=== PATIENT | female | born 1955 | race Two or more races ===

== ENCOUNTER 2019-06-21 00:55 | Emergency (ER) | payer OTHER, MEDICARE ==
[2019-06-21 01:15] VITALS: TEMP 97.9; BMI 28.9
[2019-06-21 02:14] LABS: BASO % 0.4 % (0-2.0); EOS % 0.3 % (0-4.5); HEMATOCRIT 39.5 % (32.4-45.2); HEMOGLOBIN 13.4 GM/dL (10.7-15.3); LYMPH % 15.2 % (8-40); MCH 28.7 pg (25.7-33.7); MCHC 33.9 g/dl (32.0-36.0); MEAN CELL VOLUME 84.7 fl (80-96); MEAN PLT VOLUME 6.7 fl (7.5-11.1); MONO % 4.2 % (3.8-10.2); NEUT % 79.9 % (42.8-82.8); PLATELET COUNT 324 K/MM3 (134-434); RBC 4.66 M/mm3 (3.60-5.2); RDW 12.5 % (11.6-15.6); WHITE BLOOD COUNT 9.7 K/mm3 (4.0-10.0)
[2019-06-21] MEDS ORDERED: SODIUM CHLORIDE 1,000 ML IV STA (02:17)
--- NOTE | 2019-06-21 02:17 | PDOC ---
History of Present Illness - General Chief Complaint: Allergic Reaction Stated Complaint: FAINTED Time Seen by Provider: 06/21/19 01:20 History Source: Patient Exam Limitations: No Limitations - History of Present Illness Initial Comments: 06/21/19 02:12 63yo F with PMH of HTN, Gastritis, Ulcers, Sleep Apnea, UTI presenting to ED for syncopal episode and allergic reaction. Pt states she has been taking Macrobid and Cefdinir for a UTI. She finished Macrobid last week and took the last pill of Cefdinir Wednesday. Since finishing on Wednesday, she developed hives and pruritis over her body. She states that she took 25mg Benadryl at 1830 yesterday and mirtazepine to help her sleep. She states the pruritis prevented her from sleeping and her encouraged her to go to the ED to get the hives looked at. Upon walking to the elevator, pt states she started to feel lightheaded and saw a bright light and had the feeling of passing out. She was walking back to her apt with her and passed out. Her was able to catch her and says she was out for about 2-3min. No incontinence or seizure like activity. She has not fainted before. She does endorse having increased urinary output last night. Denies fevers, chills, chest pain, sob, headache, changes in vision. PMD: Daria Uro: Reyes PMH: see hpi PSH: hysterectomy Meds: see med rec Allergies: cipro, various other medications Social: denies Past History - Past Medical History Allergies/Adverse Reactions: Allergies Allergy/AdvReac Type Severity Reaction Status Date / Time ciprofloxacin [From Cipro] Allergy Severe Unverified 06/21/19 02:13 ciprofloxacin HCl Allergy Severe Unverified 06/21/19 02:13 [From Cipro] Home Medications: Ambulatory Orders Cefdinir 300 mg PO DAILY 06/21/19 Diphenhydramine HCl [Benadryl -] 25 mg PO ONCE 06/21/19 Mirtazapine 15 mg PO HS 06/21/19 Triamterene [Dyrenium -] 50 mg PO DAILY 06/21/19 COPD: No GI Disorders: Yes (GASTRITIS, ULCER,) HTN: Yes Psychiatric Problems: Yes (ANXIETY,) Other medical history: SLEEP APNEA, UTI, - Surgical History Abdominal Surgery: Yes - Immunization History Immunization Up to Date: No - Suicide/Smoking/Psychosocial Hx Smoking History: Never smoked Hx Alcohol Use: No Drug/Substance Use Hx: No Review of Systems - Review of Systems Constitutional: No: Symptoms Reported HEENTM: No: Symptoms Reported Respiratory: No: Symptoms reported Cardiac (ROS): No: Symptoms Reported ABD/GI: No: Symptoms Reported : Yes: See HPI Musculoskeletal: No: Symptoms Reported Integumentary: No: Symptoms Reported Neurological: Yes: See HPI *Physical Exam - Vital Signs Last Vital Signs Temp Pulse Resp BP Pulse Ox 97.9 F 79 16 134/82 97 06/21/19 01:11 06/21/19 01:11 06/21/19 01:11 06/21/19 01:11 06/21/19 01:11 - Physical Exam General Appearance: Yes: Nourished, Appropriately Dressed. No: Apparent Distress HEENT: positive: EOMI, CAIN, Normal ENT Inspection Neck: positive: Trachea midline, Supple. negative: Carotid bruit Respiratory/Chest: positive: Lungs Clear, Normal Breath Sounds Cardiovascular: positive: Regular Rhythm, Regular Rate, S1, S2. negative: Edema , JVD, Murmur Gastrointestinal/Abdominal: positive: Normal Bowel Sounds, Tender (rlq), Soft. negative: Protuberent, Distended, Guarding, Mass Musculoskeletal: negative: CVA Tenderness Extremity: positive: Normal Capillary Refill, Pelvis Stable. negative: Pedal Edema, Swelling Integumentary: positive: Normal Color, Dry, Warm Neurologic: positive: ore tester II-XII NML intact, Fully Oriented, Alert, Normal Mood/ Affect, Normal Response, Motor Strength / ED Treatment Course - LABORATORY CBC & Chemistry Diagram: 06/21/19 01:55 06/21/19 01:55 Medical Decision Making - Medical Decision Making 06/21/19 03:00 63yo F with PMH of HTN, Gastritis, Ulcers, Sleep Apnea, UTI presenting to ED for syncopal episode and allergic reaction. Pt states she has been taking Macrobid and Cefdinir for a UTI. She finished Macrobid last week and took the last pill of Cefdinir Wednesday. Since finishing on Wednesday, she developed hives and pruritis over her body. She states that she took 25mg Benadryl at 1830 yesterday and mirtazepine to help her sleep. She states the pruritis prevented her from sleeping and her encouraged her to go to the ED to get the hives looked at. Upon walking to the elevator, pt states she started to feel lightheaded and saw a bright light and had the feeling of passing out. She was walking back to her apt with her and passed out. Her was able to catch her and says she was out for about 2-3min. No incontinence or seizure like activity. She has not fainted before. She does endorse having increased urinary output last night. Denies fevers, chills, chest pain, sob, headache, changes in vision. Vitals: wnl PE: no neurolgoical deficits, normal heart and lung sounds. RLQ tenderness, normal OP ddx includes but not limited to mediation interaction, arrhythmia, mass/ malignancy, orthostatic hypotension, vasovagal syncope, electrolyte abnormality , acs, pe low suspicion for pe: no recent surgery, not tachypneic, saturating well on ra, no signs of dvt. Pt took Remeron 3h after taking benadryl. -syncopal work up -benadryl, iv fluids, decadron will reassess and walk. pt has been havign rlq pain for which she was worked up and got CT scan which revealed "bacteria in my bladder". She is scheduled for cystoscopy today. 06/21/19 07:17 orthostatics normal. pt ambulatory in ed wihtout feeling dizzy. workup negative. safe for dc home. given return precautions. *DC/Admit/Observation/Transfer Diagnosis at time of Disposition: Vasovagal episode, Hives - Discharge Dispostion Disposition: HOME Condition at time of disposition: Improved Decision to Admit order: No - Referrals Referrals: Umesh Huff MD [Primary Care Provider] - - Patient Instructions Printed Discharge Instructions: DI for Syncope in Adults (Fainting), DI for Adverse Drug Reaction -- Allergic Additional Instructions: You were seen in the emergency room today for passing out and allergic reaction. You probably had vasovagal syncope. Your blood work and ekg were normal. Please keep yourself well hydrated. If you take Benadryl, make sure that you are in bed because this medication can make you drowsy. Apply the cream to the itchy areas. Make sure to make it to your urology appointment. Come back to the emergency room if you pass out, have worsening hives or itchiness, you develop fever or if any new concerning symptom develops. Thank you - Post Discharge Activity
[2019-06-21 02:27] LABS: INR 1.18 (0.83-1.09); PROTHROMBIN TIME (PATIENT) 13.9 SEC (9.7-13.0)
[2019-06-21] MEDS ORDERED: DEXAMETHASONE SOD PHOSPHATE 10 MG/1 ML VIAL IVPUSH ONE (02:28)
[2019-06-21] MEDS ORDERED: DEXAMETHASONE SOD PHOSPHATE 10 MG/1 ML VIAL ONE (02:32)
[2019-06-21 02:36] LABS: ALBUMIN 3.7 g/dl (3.4-5.0); BILIRUBIN,TOTAL 0.4 mg/dL (0.2-1); BLOOD UREA NITROGEN 23.4 mg/dL (7-18); CALCIUM 9.2 mg/dL (8.5-10.1); CREATININE 0.9 mg/dL (0.55-1.3); POTASSIUM 3.5 mmol/L (3.5-5.1); TOT PROT 7.4 g/dl (6.4-8.2)
[2019-06-21] MEDS ORDERED: FAMOTIDINE 20 MG/50 ML IVPB 20 MG/50 ML MG IVPB ONE ×2 (03:12→03:37)
--- NOTE | 2019-06-21 03:12 | PDOC ---
Documentation entered by Carla Isaacs SCRIBE, acting as scribe for Aleksandra Platt DO. Aleksandra Platt DO: This documentation has been prepared by the Shital lopez Adrianna, SCRIBE, under my direction and personally reviewed by me in its entirety. I confirm that the documentation accurately reflects all work, treatment, procedures, and medical decision making performed by me. Attending Attestation - Resident Resident Name: Shireen Bergeron - ED Attending Attestation I have performed the following: I have examined & evaluated the patient, The case was reviewed & discussed with the resident, I agree w/resident's findings & plan - HPI HPI: The patient is a 63 year old female, with a significant PMH of HTN, gastritis, ulcers, sleep apnea, and recurrent UTIs, who presents to the ED for evaluation of allergic reaction for one day, and syncopal episode today. Patient developed pruritus and hives diffusely after completing dose of Macrobid and Cefdinir (UTI ). She reports feeling lightheaded followed by syncopal episode earlier today, with LOC for 2-3 minutes. Patients was able to catch her before she fell, and he denies head contusion or incontinence. Allergies: Ciprofloxacin, ciprofloxacin HCl Surgical History: Abdominal surgery Social History: Denies EtOH, tobacco, or illicit drug use - Physicial Exam PE: Agree with resident exam. - Medical Decision Making 06/21/19 03:10 63-year-old female with itchy rash Syncopal episode occurred several hours post Benadryl and immediately after Remeron administration Steroids, topical Benadryl and Pepcid Plan for observation, patient to be admitted to hospitalist service if lightheadedness fails to improve EKG shows no significant acute abnormalities
[2019-06-21 03:22] LABS: EPI CELLS 2.8 /HPF (0-5/HPF); HYALINE CASTS 3 /lpf (0-8); URINE APPEARANCE CLEAR; URINE BACTERIA 52.3 /hpf (NEGATIVE); URINE BILIRUBIN NEGATIVE (NEGATIVE); URINE COLOR YELLOW; URINE GLUCOSE (UA) NEGATIVE (NEGATIVE); URINE KETONE NEGATIVE (NEGATIVE); URINE LEUK ESTERASE 2+ (NEGATIVE); URINE NITRITE NEGATIVE (NEGATIVE); URINE PROTEIN NEGATIVE (NEGATIVE); URINE RBC 1 /hpf (0-4); URINE UROBILINOGEN 0.2 mg/dL (0.2-1.0); URINE WBC 44 /hpf (0-5)
[2019-06-21 05:34] VITALS: BP 116/68; PULSE 78
--- NOTE | 2019-06-21 08:23 | EKG ---
Test Reason : Blood Pressure : / mmHG Vent. Rate : 073 BPM Atrial Rate : 073 BPM P-R Int : 134 ms QRS Dur : 086 ms QT Int : 384 ms P-R-T Axes : 145 162 164 degrees QTc Int : 423 ms SUSPECT ARM LEAD REVERSAL, INTERPRETATION ASSUMES NO REVERSAL UNUSUAL P AXIS, POSSIBLE ECTOPIC ATRIAL RHYTHM RIGHT AXIS DEVIATION ABNORMAL ECG NO PREVIOUS ECGS AVAILABLE Confirmed by DANIELLE DELCID, SHAQ ([id number]) on 06/21/2019 8:22:33 AM Referred By: Confirmed By:SHAQ SANTOS MD
== END 2019-06-21 05:58 | disposition home or self-care (01) ==
LOC: JER 00:55
PROC: 3E033GC Introduction of Other Therapeutic Substance into Peripheral Vein, Percutaneous Approach (ICD-10-PCS; principal; 2019-06-21)
PROC: 3E0337Z Introduction of Electrolytic and Water Balance Substance into Peripheral Vein, Percutaneous Approach (ICD-10-PCS; 2019-06-21)
DX: R55 Syncope and collapse (principal); L50.9 Urticaria, unspecified
CPT/HCPCS: 36415; 80053; 81003; 84484; 85025; 85610; 93005; 93010; 96361; 96365; 96375; 99283-25; J1100; J7030

== ENCOUNTER 2019-06-23 07:27 | Emergency (ER) | payer OTHER, MEDICARE ==
[2019-06-23 07:31] VITALS: BMI 28.9
[2019-06-23] MEDS ORDERED: methylPREDNISolone NA SUCC 125 MG/2 ML VIAL IVPB ONE (07:44)
[2019-06-23] MEDS ORDERED: FAMOTIDINE 20 MG/50 ML IVPB 20 MG in PREMIX 50 IVPB ONE (07:44)
[2019-06-23] MEDS ORDERED: methylPREDNISolone NA SUCC 125 MG/2 ML VIAL ONE (07:53)
[2019-06-23] MEDS ORDERED: FAMOTIDINE 20 MG/50 ML IVPB 20 MG/50 ML MG IVPB ONE (07:53)
--- NOTE | 2019-06-23 07:55 | PDOC ---
History of Present Illness - General Chief Complaint: Rash Stated Complaint: RASH Time Seen by Provider: 06/23/19 07:36 History Source: Patient Exam Limitations: No Limitations - History of Present Illness Initial Comments: 06/23/19 08:03 CHIEF COMPLAINT: Rash HISTORY OF PRESENT ILLNESS: This is a 63-year-old female with a history of hypertension, gastritis/peptic ulcer disease, and multiple urinary tract infections. The patient was seen here on 06/21 with a generalized rash after starting Cefdinir for UTI. She did have syncope at that time, which was attributed to taking muscle relaxer and Benadryl together. Patient was treated with Benadryl, however returns today because the rash is worsening. She describes it as very itchy and preventing her from sleeping, "bumpy", and generalized affecting her scalp, face, extremities, and trunk. There is no rash on the palms or soles. She notes multiple episodes of nonbloody diarrhea daily. Patient denies fever, coryza, conjunctivitis, cough, wheezing/shortness of breath, or any other symptoms she has no known sick contacts or travel. Last dose of Cefdinir was Wednesday. Of note, the patient did undergo cystoscopy on noting no concerning findings. Vital signs on arrival are unremarkable. REVIEW OF SYSTEMS: GENERAL/CONSTITUTIONAL: No fever or chills. No weakness. No weight change. HEAD, EYES, EARS, NOSE AND THROAT: No change in vision. No ear pain or discharge. No sore throat. CARDIOVASCULAR: No chest pain or palpitations. RESPIRATORY: No cough, wheezing, or shortness of breath. GASTROINTESTINAL: Diarrhea. No nausea, vomiting, or constipation. GENITOURINARY: No dysuria, frequency, or change in urination. MUSCULOSKELETAL: No joint or muscle swelling or pain. No neck or back pain. SKIN: See history of present illness. NEUROLOGIC: No headache, vertigo, loss of consciousness, or loss of sensation. PSYCHIATRIC: No depression or anxiety. ENDOCRINE: No increased thirst. No abnormal weight change. HEMATOLOGIC/LYMPHATIC: No anemia, easy bleeding, or history of blood clots. ALLERGIC/IMMUNOLOGIC: Known ALLERGIES to ciprofloxacin and amoxicillin (hives). PHYSICAL EXAM: GENERAL: The patient is awake, alert, and fully oriented, in no acute distress. HEAD: Normal with no signs of trauma. ENT: No oropharyngeal edema. Pupils equal, round and reactive to light, extraocular movements intact, sclera anicteric, conjunctiva clear. Neck supple. LUNGS: Clear to auscultation bilaterally/no wheezing. Normal excursion. No respiratory distress or use of accessory muscles. CV: RRR, S1/S2, no MRG. Cap refill < 2 sec. ABDOMEN: Soft, non-distended, non-tender. EXTREMITIES: Normal range of motion, no edema. NEUROLOGICAL: Normal speech, normal gait. CN II-XII grossly intact. PSYCH: Normal mood, normal affect. SKIN: Diffuse, blanching hives to face, extremities, trunk, back, scalp. Past History - Past Medical History Allergies/Adverse Reactions: Allergies Allergy/AdvReac Type Severity Reaction Status Date / Time ciprofloxacin [From Cipro] Allergy Severe Verified 06/23/19 08:07 ciprofloxacin HCl Allergy Severe Verified 06/23/19 08:07 [From Cipro] amoxicillin Allergy Verified 06/23/19 08:07 Home Medications: Ambulatory Orders Cefdinir 300 mg PO DAILY 06/21/19 Diphenhydramine HCl [Benadryl -] 25 mg PO ONCE 06/21/19 Mirtazapine 15 mg PO HS 06/21/19 Triamterene [Dyrenium -] 50 mg PO DAILY 06/21/19 Pantoprazole Sodium [Protonix] 40 mg PO DAILY #7 tablet. 06/23/19 predniSONE [Deltasone -] 40 mg PO DAILY #8 tablet 06/23/19 COPD: No GI Disorders: Yes (GASTRITIS, ULCER,) HTN: Yes Psychiatric Problems: Yes (ANXIETY,) - Surgical History Abdominal Surgery: Yes - Immunization History Immunization Up to Date: No - Suicide/Smoking/Psychosocial Hx Smoking History: Never smoked Hx Alcohol Use: No Drug/Substance Use Hx: No *Physical Exam - Vital Signs Last Vital Signs Temp Pulse Resp BP Pulse Ox 97.7 F 89 18 148/80 99 06/23/19 07:29 06/23/19 07:29 06/23/19 07:29 06/23/19 07:29 06/23/19 07:29 Medical Decision Making - Medical Decision Making 06/23/19 08:15 A/P: 63-year-old female with worsening pruritic rash, likely secondary to antibiotic use, without oropharyngeal or respiratory involvement. -SoluMedrol, Benadryl, Pepcid IV -Short course prednisone + PPI (peptic ulcer disease) -Allergy referral -UA with 44 WBCs on last visit - will send UA/culture 06/23/19 10:04 Itching/redness improving. Followup instructions and return precautions reviewed with patient and . *DC/Admit/Observation/Transfer Diagnosis at time of Disposition: Hives - Discharge Dispostion Disposition: HOME Condition at time of disposition: Stable - Prescriptions Prescriptions: Pantoprazole Sodium [Protonix] 40 mg PO DAILY #7 tablet. predniSONE [Deltasone -] 40 mg PO DAILY #8 tablet - Referrals Referrals: Umesh Huff MD [Primary Care Provider] - Dez Martinez MD [Staff Physician] - Call tomorrow (Allergy) - Patient Instructions Printed Discharge Instructions: DI for General Allergic Reactions Additional Instructions: -Continue prednisone (steroid) as prescribed along with Benadryl. It is important that you take pantoprazole as prescribed for stomach protection while on steroids. -Follow up with the management recruiter (referral enclosed). -Return here for tongue/lip/throat swelling, difficulty breathing, or any other concerning symptoms. - Post Discharge Activity
[2019-06-23 09:59] LABS: EPI CELLS 6.1 /HPF (0-5/HPF); HYALINE CASTS 2 /lpf (0-8); URINE APPEARANCE CLEAR; URINE BACTERIA 23.4 /hpf (NEGATIVE); URINE BILIRUBIN NEGATIVE (NEGATIVE); URINE COLOR YELLOW; URINE GLUCOSE (UA) NEGATIVE (NEGATIVE); URINE KETONE NEGATIVE (NEGATIVE); URINE LEUK ESTERASE TRACE (NEGATIVE); URINE NITRITE NEGATIVE (NEGATIVE); URINE PROTEIN NEGATIVE (NEGATIVE); URINE RBC 2 /hpf (0-4); URINE UROBILINOGEN 0.2 mg/dL (0.2-1.0); URINE WBC 6 /hpf (0-5)
[2019-06-23 10:23] VITALS: BP 134/79; PULSE 76; TEMP 98
== END 2019-06-23 10:24 | disposition home or self-care (01) ==
LOC: JER 07:27
PROC: 3E033GC Introduction of Other Therapeutic Substance into Peripheral Vein, Percutaneous Approach (ICD-10-PCS; principal; 2019-06-23)
PROC: 3E033GC Introduction of Other Therapeutic Substance into Peripheral Vein, Percutaneous Approach (ICD-10-PCS; 2019-06-23)
PROC: 3E0333Z Introduction of Anti-inflammatory into Peripheral Vein, Percutaneous Approach (ICD-10-PCS; 2019-06-23)
DX: L50.0 Allergic urticaria (principal); I10 Essential (primary) hypertension; K27.9 Peptic ulcer, site unspecified, unspecified as acute or chronic, without hemorrhage or perforation; Z87.440 Personal history of urinary (tract) infections
CPT/HCPCS: 81003; 87086; 87186; 96365; 96375; 99282-25

== ENCOUNTER 2019-11-09 16:33 | Inpatient (IN) | payer OTHER, MEDICARE ==
--- NOTE | 2019-11-09 16:42 | PDOC ---
Rapid Medical Evaluation Time Seen by Provider: 11/09/19 16:36 Medical Evaluation: Allergies Allergy/AdvReac Type Severity Reaction Status Date / Time ciprofloxacin [From Cipro] Allergy Severe Verified 06/23/19 08:07 ciprofloxacin HCl Allergy Severe Verified 06/23/19 08:07 [From Cipro] amoxicillin Allergy Verified 06/23/19 08:07 11/09/19 16:37 I have performed a brief in-person evaluation of this patient. The patient presents with a chief complaint of:sent for fevers/ cough x 3 weeks.+ UTI noted 2 days ago, Noted CBC with WBC 17. Taking Macrobid for UTI x 1 day. but worsening symptoms Pertinent physical exam findings: pale/ no CVAT I have ordered the following: UA/ Ucx The patient will proceed to the ED for further evaluation. Discharge Disposition - Diagnosis Dysuria - Discharge Dispostion Condition at time of disposition: Stable - Referrals - Patient Instructions - Post Discharge Activity
[2019-11-09 17:26] LABS: BASO % 0.2 % (0-2.0); EOS % 1.7 % (0-4.5); HEMATOCRIT 43.8 % (32.4-45.2); HEMOGLOBIN 14.5 GM/dL (10.7-15.3); MCH 28.2 pg (25.7-33.7); MCHC 33.1 g/dl (32.0-36.0); MEAN CELL VOLUME 85.1 fl (80-96); MEAN PLT VOLUME 7.2 fl (7.5-11.1); MONO % 2.9 % (3.8-10.2); NEUT % 87.2 % (42.8-82.8); PLATELET COUNT 260 K/MM3 (134-434); RBC 5.15 M/mm3 (3.60-5.2); RDW 12.7 % (11.6-15.6)
[2019-11-09 17:33] LABS: EPI CELLS 1.3 /HPF (0-5/HPF); HYALINE CASTS 19 /lpf (0-8); PH,URINE 5.5 (5.0-8.0); URINE APPEARANCE CLOUDY; URINE BACTERIA 634.2 /hpf (NEGATIVE); URINE BILIRUBIN NEGATIVE (NEGATIVE); URINE COLOR YELLOW; URINE GLUCOSE (UA) NEGATIVE (NEGATIVE); URINE KETONE NEGATIVE (NEGATIVE); URINE LEUK ESTERASE TRACE (NEGATIVE); URINE NITRITE NEGATIVE (NEGATIVE); URINE PROTEIN 1+ (NEGATIVE); URINE RBC 15 /hpf (0-4); URINE UROBILINOGEN 0.2 mg/dL (0.2-1.0); URINE WBC 28 /hpf (0-5)
--- NOTE | 2019-11-09 17:40 | PDOC ---
History of Present Illness - General Chief Complaint: Urinary Problem Stated Complaint: SENT BY PCP/ABNORMAL LAB Time Seen by Provider: 11/09/19 16:36 - History of Present Illness Initial Comments: 11/09/19 17:40 HPI: 64 y/o F with hx of HTN, gastritis/pud, recurrent UTIs presenting from urgent care for elevated WBC 18. She states she presented to urgent care for constant urethral irritation. She states she has been suffering from urethral irritation for >1.5 months and hematuria for almost a year; she follows with Dr Castrejon from urology and has recently had a cystoscopy 2 days ago for biopsy. She states her irritation worsened following the procedure. She was on macrobid prophylactically. She also reports some mild suprapubic pain. Of note, she reports increasing sensitivity to abx since the summer and says she is developing allergic reactions/is becoming intolerant. She also reports T 102.5 last two nights at home Unrelated to her current complaints, she also reports improving URI like symptoms over the past 3 weeks; was briefly prescribed zpack but self- discontinued after 2 days of abx due to intolerance and abd pain Patient denies MOTT, chest pain, SOB, vomiting, PMHx: as noted above ROS: as noted SHx: Denies tobacco use; no alcohol use; no rec drugs Allergies: NKDA ROS: GENERAL/CONSTITUTIONAL: +fever. No weakness. HEAD, EYES, EARS, NOSE AND THROAT: No change in vision. No ear pain or discharge. No sore throat. CARDIOVASCULAR: No chest pain or shortness of breath RESPIRATORY: No cough, wheezing, or hemoptysis. GASTROINTESTINAL: +nausea; no vomiting, diarrhea or constipation. GENITOURINARY: +dysuria; no frequency, or change in urination. MUSCULOSKELETAL: No joint or muscle swelling or pain. No neck or back pain. SKIN: No rash NEUROLOGIC: No vertigo, loss of consciousness, or change in strength/sensation. ENDOCRINE: No increased thirst. No abnormal weight change HEMATOLOGIC/LYMPHATIC: No anemia, easy bleeding, or history of blood clots. ALLERGIC/IMMUNOLOGIC: No hives or skin allergy. PE: GENERAL: Awake, alert, and fully oriented, no acute distress HEAD: No signs of trauma, normocephalic, atraumatic EYES: EOMI, sclera anicteric, conjunctiva clear ENT: Auricles normal inspection, hearing grossly normal, nares patent, oropharynx clear without exudates. Moist mucosa NECK: Normal ROM, no lymphadenopathy LUNGS: No increased work of breathing, symmetrical chest rise, clear to auscultation bilaterally, no wheezes, crackles or rhonchi HEART: Regular rate and rhythm, normal S1 and S2, no murmurs, peripheral pulses 2+ and equal bilaterally. ABDOMEN: Soft, nondistended, minimal LLQ ttp, normoactive bowel sounds. No guarding, no rebound. No masses. No CVAT MUSCULOSKELETAL: Normal inspection, FROM NEUROLOGICAL: Cranial nerves II through XII grossly intact. Normal speech, normal gait, no focal sensorimotor deficits SKIN: Warm, Dry, normal turgor, no rashes or lesions noted Past History - Past Medical History Allergies/Adverse Reactions: Allergies Allergy/AdvReac Type Severity Reaction Status Date / Time ciprofloxacin [From Cipro] Allergy Severe Verified 11/09/19 16:39 ciprofloxacin HCl Allergy Severe Verified 11/09/19 16:39 [From Cipro] aztreonam [From Azactam] Allergy Mild Itching Verified 11/09/19 22:51 amoxicillin Allergy Verified 11/09/19 16:39 Cephalosporins Allergy Verified 11/09/19 16:39 Home Medications: Ambulatory Orders Mirtazapine 15 mg PO HS 06/21/19 Triamterene [Dyrenium -] 50 mg PO DAILY 06/21/19 Nitrofurantoin Monohyd/M-Cryst [Macrobid -] 100 mg PO BID 11/09/19 Omeprazole 20 mg PO DAILY 11/09/19 Triamterene/Hydrochlorothiazid [Triamterene-Hctz 37.5-25 mg Cp] 1 each PO DAILY 11/09/19 COPD: No GI Disorders: Yes (GASTRITIS, ULCER,) HTN: Yes Psychiatric Problems: Yes (ANXIETY,) - Surgical History Abdominal Surgery: Yes - Immunization History Immunization Up to Date: No - Psycho Social/Smoking Cessation Hx Smoking History: Never smoked Hx Alcohol Use: No Drug/Substance Use Hx: No *Physical Exam - Vital Signs Last Vital Signs Temp Pulse Resp BP Pulse Ox 98.6 F 101 H 18 125/72 98 11/09/19 16:35 11/09/19 16:35 11/09/19 16:35 11/09/19 16:35 11/09/19 16:35 ED Treatment Course - LABORATORY CBC & Chemistry Diagram: 11/09/19 17:07 11/09/19 17:07 - ADDITIONAL ORDERS Additional order review: Laboratory Results 11/09/19 17:07 Urine Color Yellow Urine Appearance Cloudy Urine pH 5.5 Ur Specific Kiefer 1.022 Urine Protein 1+ H Urine Glucose (UA) Negative Urine Ketones Negative Urine Blood 2+ H Urine Nitrite Negative Urine Bilirubin Negative Urine Urobilinogen 0.2 Ur Leukocyte Esterase Trace Urine WBC (Auto) 28 Urine RBC (Auto) 15 Urine Casts (Auto) 19 U Epithel Cells (Auto) 1.3 Urine Bacteria (Auto) 634.2 11/09/19 17:07 RBC 5.15 MCV 85.1 MCHC 33.1 RDW 12.7 MPV 7.2 L Neutrophils % 87.2 H Lymphocytes % 8.0 D Monocytes % 2.9 L Eosinophils % 1.7 D Basophils % 0.2 Medical Decision Making - Medical Decision Making 11/09/19 23:18 64 y/o F with hx of HTN, gastritis/pud, recurrent UTIs presenting from urgent care for elevated WBC 18 and dysuria with fevers. T 100.7, HR 101. PE with LLQ ttp. DDx includes sepsis, uti, diverticulitis, pyelo, kidney stone -sepsis order set, ua, ucx -ivf, aztreonam due to allergies, vanc due to past ucx and sensitivity, ofirmev 11/09/19 23:20 ua with uti patient with reports of pruritis following completion of aztreonam, patient assessed and VSS; will administer solumedrol, pepcid, benadryl, admitting team made aware admitted to med/surg under dr bermudez attempted to consult dr castrejon with urology given uti following procedure but no response after 2 calls Discharge - Discharge Information Problems reviewed: Yes Clinical Impression/Diagnosis: Dysuria UTI (urinary tract infection) Qualifiers: Urinary tract infection type: site unspecified Hematuria presence: with hematuria Qualified Code(s): N39.0 - Urinary tract infection, site not specified Condition: Stable - Admission Yes - Follow up/Referral Referrals: Umesh Huff MD [Primary Care Provider] - - Patient Discharge Instructions - Post Discharge Activity
[2019-11-09 17:41] LABS: INR 1.47 (0.83-1.09); PROTHROMBIN TIME (PATIENT) 17.4 SEC (9.7-13.0)
[2019-11-09 17:54] LABS: ALBUMIN 3.6 g/dl (3.4-5.0); BILIRUBIN,TOTAL 0.5 mg/dL (0.2-1); BLOOD UREA NITROGEN 17.8 mg/dL (7-18); CALCIUM 9.4 mg/dL (8.5-10.1); CREATININE 1.1 mg/dL (0.55-1.3); POTASSIUM 3.2 mmol/L (3.5-5.1); TOT PROT 7.7 g/dl (6.4-8.2)
[2019-11-09] MEDS ORDERED: SODIUM CHLORIDE 2,123 ML IV ONE (18:08)
[2019-11-09] MEDS ORDERED: ACETAMINOPHEN 1000 MG/100 ML VIAL (NON FORMULARY) IVPB ONE (18:20)
[2019-11-09] MEDS ORDERED: ACETAMINOPHEN INJECTION 100 ML IVPB ONE (18:33)
[2019-11-09 18:46] LABS: VENOUS PC02 34.5 mmHg (38-52); VENOUS PH 7.53 (7.31-7.41)
--- NOTE | 2019-11-09 19:25 | PDOC ---
Documentation entered by Estela Isaacs SCRIBE, acting as scribe for Janee Villasenor MD. Janee Villasenor MD: This documentation has been prepared by the Shital lopez Brenda, SCRIBE, under my direction and personally reviewed by me in its entirety. I confirm that the documentation accurately reflects all work, treatment, procedures, and medical decision making performed by me. Attending Attestation - Resident Resident Name: ManiRonaldoli - ED Attending Attestation I have performed the following: I have examined & evaluated the patient, The case was reviewed & discussed with the resident, I agree w/resident's findings & plan, Exceptions are as noted - HPI HPI: 11/09/19 19:23 64-year-old female history of hypertension and frequent UTIs here complaining of dysuria hematuria and irritation for 1 month. Patient states she was started on cefdinir early on in the course of her symptoms developed allergic reaction for which she had to discontinue it. She was then given a prescription for second medication which she could not afford in addition patient has been having recently a cough and congestion for 1 week she was started on azithromycin 1 week ago took approximately 2 days worth and states she had to stop because of diarrhea. Patient states that she had a cystoscopy by Dr. Aaron Lewis few days ago is still having persistent urinary symptoms. Also complaining of left lower quadrant pain last night she had a fever of 102 cough is been dry nonproductive no sick contacts no longer having diarrhea no nausea no vomiting - Physicial Exam PE: 11/09/19 19:24 Awake alert no acute distress face is flushed lungs are clear bilaterally heart is regular without murmurs rubs or gallops abdomen is soft there is mild left lower quadrant tenderness no rebound no guarding no CVA tenderness. Extremities are warm well perfused skin is warm and dry except for her flushed cheeks no rash appreciated - Medical Decision Making 11/09/19 19:24 64-year-old female history of frequent UTIs with urinary irritation for 1 month status post cystoscopy 3 days ago and cough. Differential includes viral syndrome causing cough and fevers. Diverticulitis, pyelonephritis UTI urethral irritation secondary to cystoscopy. Plan CBC CMP UA urine cultures CT abdomen pelvis ordered to rule out any associated diverticulitis or other intra- abdominal pathology. Chest x-ray to rule out underlying pneumonia as a cause for the patient's cough and fever Heart Score/ECG Review #1 ECG reviewed & interpreted by me at: 19:25 General ECG Interpretation: Sinus Rhythm, Normal Rate (88), Normal Intervals, No acute ischemic changes
[2019-11-09] MEDS ORDERED: AZTREONAM 1 GM in DEXTROSE 5%-WATER - 50 ML IVPB ONE (22:18)
[2019-11-09] MEDS ORDERED: AZTREONAM 1 GM VIAL (RESTRICTED TO ID) ONE (22:20)
--- NOTE | 2019-11-09 22:33 | HP ---
CHIEF COMPLAINT: urinary symptoms, fever PCP: Daria HISTORY OF PRESENT ILLNESS: This is a 64 year old female with a past medical history of frequent UTIs, HTN, gastritis who presented to the ED from urgent care today with complaint of intermittent fevers, 3 weeks of cough, URI symptoms. Her symptoms had improved earlier in the week and she underwent planned cystoscopy on 11/[address] Castrejon for chronic urinary complaints. Her URI symptoms returned after the cystoscopy and she reports worsening of the "irritation" of her urinary system. She describes an irritation of her urethral area, not quite a burning sensation but uncomfortable that is relieved when she urinates. She denies burning during urination. She reports a negative influenza test at urgent care today. Urgent care advised her to go to the ED in setting of WBC 18. ER course was notable for: (1) WBC 17 (2) CT abdomen and pelvis without acute pathology (3) u/a with tr leuk esterase, 28 WBC and 634 bacteria (4) mild pruritis after aztreonam administration, no rash or urticaria. Recent Travel: pt denies PAST MEDICAL HISTORY: HTN, frequent UTI, gastritis, spinal stenosis PAST SURGICAL HISTORY: MARIBEL, x 2, sinus surgery, R breast lumpectomy, R knee arthroscopy Social History: Smoking: pt denies Alcohol: pt denies Drugs: pt denies Allergies ciprofloxacin [From Cipro] Allergy (Severe, Verified 11/09/19 16:39) ciprofloxacin HCl [From Cipro] Allergy (Severe, Verified 11/09/19 16:39) amoxicillin Allergy (Verified 11/09/19 16:39) Cephalosporins Allergy (Verified 11/09/19 16:39) HOME MEDICATIONS: 3 Medication Instructions Recorded Mirtazapine 15 mg PO HS 06/21/19 Triamterene [Dyrenium -] 50 mg PO DAILY 06/21/19 Nitrofurantoin Monohyd/M-Cryst 100 mg PO BID 11/09/19 [Macrobid -] Omeprazole 20 mg PO DAILY 11/09/19 Triamterene/Hydrochlorothiazid 1 each PO DAILY 11/09/19 [Triamterene-Hctz 37.5-25 mg Cp] REVIEW OF SYSTEMS CONSTITUTIONAL: Absent: fever, chills, diaphoresis, generalized weakness, malaise, loss of appetite, weight change HEENT: Present: rhinorrhea, nasal congestion, throat pain Absent: throat swelling, difficulty swallowing, mouth swelling, ear pain, eye pain, visual changes CARDIOVASCULAR: Absent: chest pain, syncope, palpitations, irregular heart rate, lightheadedness , peripheral edema RESPIRATORY: Present: cough Absent: shortness of breath, dyspnea with exertion, orthopnea, wheezing, stridor , hemoptysis GASTROINTESTINAL: Absent: abdominal pain, abdominal distension, nausea, vomiting, diarrhea, constipation, melena, hematochezia GENITOURINARY: Present: hematuria, urinary irritation Absent: dysuria, frequency, urgency, hesitancy, flank pain, genital pain MUSCULOSKELETAL: Absent: myalgia, arthralgia, joint swelling, back pain, neck pain SKIN: Absent: rash, itching, pallor HEMATOLOGIC/IMMUNOLOGIC: Absent: easy bleeding, easy bruising, lymphadenopathy, frequent infections ENDOCRINE: Absent: unexplained weight gain, unexplained weight loss, heat intolerance, cold intolerance NEUROLOGIC: Absent: headache, focal weakness or paresthesias, dizziness, unsteady gait, seizure, mental status changes, bladder or bowel incontinence PSYCHIATRIC: Absent: anxiety, depression, suicidal or homicidal ideation, hallucinations. PHYSICAL EXAMINATION Vital Signs - 24 hr 3 11/09/19 11/09/19 16:35 18:12 Temperature 98.6 F 100.7 F H Pulse Rate 101 H Respiratory 18 Rate Blood Pressure 125/72 O2 Sat by Pulse 98 Oximetry (%) GENERAL: Awake, alert, and fully oriented, in no acute distress. HEAD: Normal with no signs of trauma. EYES: Pupils equal, round and reactive to light, extraocular movements intact, sclera anicteric, conjunctiva clear. No lid lag. EARS, NOSE, THROAT: Ears normal, nares patent, oropharynx clear without exudates. Moist mucous membranes. NECK: Normal range of motion, supple without lymphadenopathy, JVD, or masses. LUNGS: Breath sounds equal, clear to auscultation bilaterally. No wheezes, and no crackles. No accessory muscle use. HEART: Regular rate and rhythm, normal S1 and S2 without murmur, rub or gallop. ABDOMEN: Soft, nontender, not distended, normoactive bowel sounds, no guarding, no rebound, no masses. No hepatomegaly or splenomegaly. MUSCULOSKELETAL: Normal range of motion at all joints. No bony deformities or tenderness. No CVA tenderness. UPPER EXTREMITIES: 2+ pulses, warm, well-perfused. No cyanosis. No clubbing. No peripheral edema. LOWER EXTREMITIES: 2+ pulses, warm, well-perfused. No calf tenderness. No peripheral edema. NEUROLOGICAL: Cranial nerves II-XII intact. Normal speech. Normal gait. PSYCHIATRIC: Cooperative. Good eye contact. Appropriate mood and affect. SKIN: Warm, dry, normal turgor, no rashes or lesions noted, normal capillary refill. Laboratory Results - last 24 hr 3 11/09/19 11/09/19 11/09/19 17:07 17:07 17:07 WBC 17.0 H RBC 5.15 Hgb 14.5 Hct 43.8 MCV 85.1 MCH 28.2 MCHC 33.1 RDW 12.7 Plt Count 260 MPV 7.2 L Absolute Neuts (auto) 14.9 H Neutrophils % 87.2 H Lymphocytes % 8.0 D Monocytes % 2.9 L Eosinophils % 1.7 D Basophils % 0.2 Nucleated RBC % 0 PT with INR 17.40 H INR 1.47 H VBG pH POC VBG pCO2 POC VBG pO2 VBG HCO3 VBG O2 Sat ([place]) VBG Base Excess Sodium 138 Potassium 3.2 L Chloride 97 L Carbon Dioxide 32 Anion Gap 10 BUN 17.8 Creatinine 1.1 Est GFR (CKD-EPI)AfAm 60.59 Est GFR (CKD-EPI)NonAf 52.28 Random Glucose 115 H Lactic Acid Calcium 9.4 Total Bilirubin 0.5 AST 14 L ALT 17 Alkaline Phosphatase 79 Total Protein 7.7 Albumin 3.6 Urine Color Urine Appearance Urine pH Ur Specific [place] Urine Protein Urine Glucose (UA) Urine Ketones Urine Blood Urine Nitrite Urine Bilirubin Urine Urobilinogen Ur Leukocyte Esterase Urine WBC (Auto) Urine RBC (Auto) Urine Casts (Auto) U Epithel Cells (Auto) Urine Bacteria (Auto) 3 11/09/19 11/09/19 11/09/19 17:07 18:12 18:34 WBC RBC Hgb Hct MCV MCH MCHC RDW Plt Count MPV Absolute Neuts (auto) Neutrophils % Lymphocytes % Monocytes % Eosinophils % Basophils % Nucleated RBC % PT with INR INR VBG pH 7.53 H POC VBG pCO2 34.5 L POC VBG pO2 117 H VBG HCO3 28.4 VBG O2 Sat ([place]) 98.7 H VBG Base Excess 5.9 H Sodium Potassium Chloride Carbon Dioxide Anion Gap BUN Creatinine Est GFR (CKD-EPI)AfAm Est GFR (CKD-EPI)NonAf Random Glucose Lactic Acid 0.9 Calcium Total Bilirubin AST ALT Alkaline Phosphatase Total Protein Albumin Urine Color Yellow Urine Appearance Cloudy Urine pH 5.5 Ur Specific [place] 1.022 Urine Protein 1+ H Urine Glucose (UA) Negative Urine Ketones Negative Urine Blood 2+ H Urine Nitrite Negative Urine Bilirubin Negative Urine Urobilinogen 0.2 Ur Leukocyte Esterase Trace Urine WBC (Auto) 28 Urine RBC (Auto) 15 Urine Casts (Auto) 19 U Epithel Cells (Auto) 1.3 Urine Bacteria (Auto) 634.2 CT abdomen/pelvis Impression: The abdomen and pelvis demonstrate no definite CT findings of acute pathology. A small amount of air is seen within the urinary bladder lumen - ? recent catheterization or voiding. No gross colovesical fistula is identified. Correlate clinically. Small pericardial effusion. Consider correlation with echocardiography. Mild left basilar discoid atelectasis. Reported By: Octavio Rolon MD 11/09/192034 EC11/09/19 18:22 Normal sinus rhythm vent rate 88, QTC [address]/t wave changes ASSESSMENT/PLAN: 64yF with PMH frequent UTIs, s/p cystoscopy 11/07/19, HTN, gastritis presented to the ED with worsening urinary symptoms, URI, intermittent fever. UTI - complicated management due to multiple drug allergies. cont aztreonam and vancomycin, consider premedication with benadryl prior to antibiotic administration - rec ID consult in am, defer choice of provider to PCP - urology consult URI - CXR without infiltrate - supportive care hypokalemia - 40mEq po now, repeat BMP in am HTN - cont home triamterene/HCTZ gastritis - home omeprazole converted to formulary protonix DVT PPX - heparin 5000u SC bid FEN - tolerating po fluids - BMP in am with magnesium and phos - low sodium diet as tolerated Dispo: pt currently requires inpatient management of her emergent conditions Family Medical History Family Hx Cancer: Mother (breast) Family Hx Cardiac Disorders: Mother (HTN), Father (HTN, NH), Sister (HTN), Brother (HTN) Family Hx Diabetes: Father, Sister, Brother Visit type - Emergency Visit Emergency Visit: Yes ED Registration Date: 11/09/19 Care time: The patient presented to the Emergency Department on the above date and was hospitalized for further evaluation of their emergent condition. - New Patient This patient is new to me today: Yes Date on this admission: 11/09/19 - Critical Care Critical Care patient: No
[2019-11-09] MEDS ORDERED: VANCOMYCIN 1 GM in D5W (PRE-DOCKED) 1,000 MG/250 ML IVPB ONE (22:36)
[2019-11-09] MEDS ORDERED: VANCOMYCIN 1 GRAM (PRE-DOCKED) 1,000 MG/250 ML BAG IVPB ONE ×2 (22:45→23:01)
[2019-11-09] MEDS ORDERED: POTASSIUM CHLORIDE ORAL LIQUID 20 MEQ/15 ML PO ONE (22:47)
[2019-11-09] MEDS ORDERED: FAMOTIDINE 20 MG/50 ML IVPB 20 MG/50 ML MG IVPB ONE ×2 (22:51→22:57)
[2019-11-09] MEDS ORDERED: methylPREDNISolone NA SUCC 125 MG/2 ML VIAL IVPB ONE (22:51)
[2019-11-09] MEDS ORDERED: POTASSIUM CHLORIDE ORAL LIQUID 20 MEQ/15 ML ONE (22:56)
[2019-11-09] MEDS ORDERED: methylPREDNISolone NA SUCC 125 MG/2 ML VIAL ONE (22:57)
[2019-11-10] MEDS ORDERED: MIRTAZAPINE 15 MG TABLET (FP) ONE (00:08)
[2019-11-10] MEDS: MIRTAZAPINE 15 MG TABLET (FP) PO SCH ×2 (00:21→22:16)
[2019-11-10] MEDS: TRIAMTERENE AND HCTZ - 37.5 MG/25 MG CAPSULE PO SCH ×2 (00:21→11:17)
[2019-11-10 00:42] LABS: MAGNESIUM 2.2 mg/dL (1.8-2.4)
[2019-11-10 06:07] LABS: BASO % 0.2 % (0-2.0); EOS % 0.1 % (0-4.5); HEMATOCRIT 43.5 % (32.4-45.2); HEMOGLOBIN 14.7 GM/dL (10.7-15.3); LYMPH % 9.2 % (8-40); MCH 28.8 pg (25.7-33.7); MCHC 33.9 g/dl (32.0-36.0); MEAN CELL VOLUME 85.1 fl (80-96); MEAN PLT VOLUME 7.3 fl (7.5-11.1); MONO % 0.7 % (3.8-10.2); NEUT % 89.8 % (42.8-82.8); PLATELET COUNT 222 K/MM3 (134-434); RBC 5.11 M/mm3 (3.60-5.2); WHITE BLOOD COUNT 9.7 K/mm3 (4.0-10.0)
[2019-11-10 06:32] LABS: BLOOD UREA NITROGEN 15.1 mg/dL (7-18); CALCIUM 9.3 mg/dL (8.5-10.1); CREATININE 0.9 mg/dL (0.55-1.3); MAGNESIUM 2.4 mg/dL (1.8-2.4); PHOSPHOROUS 2.2 mg/dL (2.5-4.9); POTASSIUM 3.9 mmol/L (3.5-5.1)
--- NOTE | 2019-11-10 09:57 | PN ---
Progress Note (short form) - Note Progress Note: Pt seen/examined. chart reviewed awake. complains of lower abd discomfort no distress having fever Vital Signs Temp 100.7 F H 11/09/19 18:12 Pulse 74 11/10/19 07:01 Resp 18 11/10/19 07:01 BP 120/72 11/10/19 07:01 Pulse Ox 97 11/10/19 07:01 Intake & Output 11/09/19 11/09/19 11/10/19 11:59 23:59 11:59 Weight 156 lb Other: Voiding Method Toilet Height 5 ft 2 in Body Mass Index (BMI) 28.5 Active Medications Heparin Sodium (Porcine) (Heparin -) 5,000 unit SQ BID PAUL Mirtazapine (Remeron -) 15 mg PO HS PAUL Last Admin: 11/10/19 00:21 Dose: 15 mg Pantoprazole Sodium (Protonix Packets For Oral Suspension -) 40 mg PO DAILY PAUL Triamterene/HCTZ (Dyazide 25/37.5mg) 1 cap PO DAILY PAUL Last Admin: 11/10/19 00:21 Dose: 1 cap CBC, BMP 11/10/19 05:30 11/10/19 05:30 Physical Exam. S1 S2 RRR Lungs clear Abd-soft,mild supra pubic tenderness Ext- No edema a/p uti/ cystitis Continue present care abx urology/ i/d consults D/w Dr. sam - will follow d/w RN also Problem List - Problems (1) Dysuria Code(s): R30.0 - DYSURIA (2) UTI (urinary tract infection) Code(s): N39.0 - URINARY TRACT INFECTION, SITE NOT SPECIFIED Qualifiers: Urinary tract infection type: site unspecified Hematuria presence: with hematuria Qualified Code(s): N39.0 - Urinary tract infection, site not specified; R31.9 - Hematuria, unspecified
--- NOTE | 2019-11-10 10:51 | EKG ---
Test Reason : Blood Pressure : / mmHG Vent. Rate : 088 BPM Atrial Rate : 088 BPM P-R Int : 142 ms QRS Dur : 086 ms QT Int : 332 ms P-R-T Axes : 023 017 006 degrees QTc Int : 401 ms NORMAL SINUS RHYTHM NONSPECIFIC ST ABNORMALITY Confirmed by JOCELYNE KAMARA MD ([id number]) on 11/10/2019 10:50:59 AM Referred By: Confirmed By:JOCELYNE KAMARA MD
[2019-11-10] MEDS: HEPARIN NA (PORCINE) 5,000 UNITS/ML 1ML VIAL SQ SCH ×2 (11:17→22:16)
[2019-11-10] MEDS: PANTOPRAZOLE SOD 40 MG SUSPENSION PACKET PO SCH (11:18)
--- NOTE | 2019-11-10 14:30 | CONS ---
DATE OF CONSULTATION: DATE OF DICTATION: 11/10/2019 HISTORY: Patient is a 64-year-old female who was seen in my office on November 07 with hematuria and history of recurrent urinary tract infections including dysuria, frequency, urgency, and 1 episode of hematuria. The patient underwent a cystourethroscopy, bladder biopsy, and fulguration at that time. She did receive 1 g of Rocephin and was sent home on Bactrim DS 1 p.o. b.i.d. for 10 days. She presented to the emergency room on November 09, 2019, complaining of dysuria, hematuria, and pelvic pain. Patient also has a history of high blood pressure. She also is complaining of coughing and had an episode of fever. She denies any chest pain or shortness of breath. Her white count on admission is 17,000. Her BUN 17.8, creatinine 1.1. Her maximum temperature is 107. The patient did have a CAT scan in the emergency room, and this revealed a small amount of air seen within the urinary bladder lumen, possible recent catheterization or voiding. There was no gross colovesical fistula identified. There was also a small pericardial effusion. There was mild left basilar discoid atelectasis. IMPRESSION: At present is a 64-year-old female with recurrent urinary tract infection. She is status post a bladder biopsy. The pathology is pending. We will follow with you. We will treat after proper culture and sensitivity is back. KIA SOLER M.D. [id number]
[2019-11-10] MEDS ORDERED: GENTAMICIN INJECTION 100 MG in SODIUM CHLORIDE 97.5 ML IVPB ONE ×2 (20:08→22:45)
--- NOTE | 2019-11-10 20:12 | PN ---
Progress Note (short form) - Note Progress Note: ID CONSULT DICTATED LEUKOCYTOSIS UTI R/O SEPSIS SECONDARY TO UTI MULTIPLE ANTIBIOTIC ALLERGIES AWAIT C/S EMPIRIC VANCOMYCIN / GENTAMICIN
[2019-11-10] MEDS ORDERED: VANCOMYCIN 1 GRAM (PRE-DOCKED) 1,000 MG/250 ML BAG IVPB SCH (20:15)
[2019-11-10] MEDS ORDERED: ACETAMINOPHEN 325 MG TABLET (FP) PO ONE (22:46)
[2019-11-11] MEDS ORDERED: VANCOMYCIN 1 GRAM (PRE-DOCKED) 1,000 MG/250 ML BAG IVPB SCH (01:00)
[2019-11-11 06:09] VITALS: TEMP 97.7
[2019-11-11 08:54] LABS: BASO % 0.4 % (0-2.0); EOS % 3.9 % (0-4.5); HEMATOCRIT 40.1 % (32.4-45.2); HEMOGLOBIN 13.6 GM/dL (10.7-15.3); LYMPH % 27.1 % (8-40); MCH 28.7 pg (25.7-33.7); MCHC 33.8 g/dl (32.0-36.0); MEAN CELL VOLUME 84.8 fl (80-96); MEAN PLT VOLUME 7.2 fl (7.5-11.1); MONO % 4.7 % (3.8-10.2); NEUT % 63.9 % (42.8-82.8); PLATELET COUNT 297 K/MM3 (134-434); RBC 4.73 M/mm3 (3.60-5.2); RDW 12.7 % (11.6-15.6); WHITE BLOOD COUNT 9.4 K/mm3 (4.0-10.0)
[2019-11-11 09:31] LABS: ALBUMIN 3.4 g/dl (3.4-5.0); BILIRUBIN,TOTAL 0.3 mg/dL (0.2-1); BLOOD UREA NITROGEN 22.5 mg/dL (7-18); CALCIUM 9.4 mg/dL (8.5-10.1); POTASSIUM 3.2 mmol/L (3.5-5.1); TOT PROT 7.4 g/dl (6.4-8.2)
[2019-11-11] MEDS: TRIAMTERENE AND HCTZ - 37.5 MG/25 MG CAPSULE PO SCH (10:16)
[2019-11-11] MEDS: HEPARIN NA (PORCINE) 5,000 UNITS/ML 1ML VIAL SQ SCH (10:16)
[2019-11-11] MEDS: PANTOPRAZOLE SOD 40 MG SUSPENSION PACKET PO SCH (10:16)
[2019-11-11 11:41] VITALS: BP 125/75; PULSE 78
[2019-11-11] MEDS ORDERED: POTASSIUM CHLORIDE TABS 20 MEQ TABLET.ER (FP) PO ONE (12:30)
--- NOTE | 2019-11-11 12:36 | DS ---
Physical Examination Vital Signs: Vital Signs Temperature 97.7 F 11/11/19 05:00 Pulse Rate 78 11/11/19 11:00 Respiratory Rate 18 11/11/19 11:00 Blood Pressure 125/75 11/11/19 11:00 O2 Sat by Pulse Oximetry (%) 96 11/11/19 09:00 Constitutional: Yes: No Distress, Calm Cardiovascular: Yes: Regular Rate and Rhythm Respiratory: Yes: CTA Bilaterally Gastrointestinal: Yes: Normal Bowel Sounds, Soft. No: Tenderness Edema: No Labs: CBC, BMP 11/11/19 08:26 11/11/19 08:26 Discharge Summary Problems reviewed: Yes Reason For Visit: URINARY TRACK INFECTION Current Active Problems Dysuria (Acute) UTI (urinary tract infection) (Acute) Hospital Course: ADMISSION PCP: Daria HISTORY OF PRESENT ILLNESS: This is a 64 year old female with a past medical history of frequent UTIs, HTN, gastritis who presented to the ED from urgent care today with complaint of intermittent fevers, 3 weeks of cough, URI symptoms. Her symptoms had improved earlier in the week and she underwent planned cystoscopy on 11/[address] Castrejon for chronic urinary complaints. Her URI symptoms returned after the cystoscopy and she reports worsening of the "irritation" of her urinary system. She describes an irritation of her urethral area, not quite a burning sensation but uncomfortable that is relieved when she urinates. She denies burning during urination. She reports a negative influenza test at urgent care today. Urgent care advised her to go to the ED in setting of WBC 18. ER course was notable for: (1) WBC 17 (2) CT abdomen and pelvis without acute pathology (3) u/a with tr leuk esterase, 28 WBC and 634 bacteria (4) mild pruritis after aztreonam administration, no rash or urticaria. HOSPITAL COURSE Pt was sen by Urology and ID Was placed on Gentamicin, Vancomycin No elevated WBC Urine cultures negative She is assymptomatic no tenderness ID evaluated pt today-- dc antibiotics as urine cultures negative stable for dc home-- follow up with Urology as outpt Condition: Stable - Instructions Referrals: Umesh Huff MD [Primary Care Provider] - Disposition: HOME - Home Medications Comprehensive Discharge Medication List: Ambulatory Orders Mirtazapine 15 mg PO HS 06/21/19 Triamterene [Dyrenium -] 50 mg PO DAILY 06/21/19 Nitrofurantoin Monohyd/M-Cryst [Macrobid -] 100 mg PO BID 11/09/19 Omeprazole 20 mg PO DAILY 11/09/19 Triamterene/Hydrochlorothiazid [Triamterene-Hctz 37.5-25 mg Cp] 1 each PO DAILY 11/09/19
--- NOTE | 2019-11-11 12:46 | PN ---
Progress Note, Physician History of Present Illness: NO COMPLAINTS NO DYSURIA. NO SUPRAPUBIC OR FLANK PAIN NO FEVER/ CHILLS CULTURES NEGATIVE - Current Medication List Current Medications: Active Medications Heparin Sodium (Porcine) (Heparin -) 5,000 unit SQ BID [facility] Last Admin: 11/11/19 10:16 Dose: 5,000 unit Vancomycin HCl (Vancomycin (Pre-Docked)) 1,000 mg in 250 mls @ 166.667 mls/hr IVPB Q12H PAUL; Protocol Last Admin: 11/11/19 00:58 Dose: 166.667 mls/hr Mirtazapine (Remeron -) 15 mg PO HS PAUL Last Admin: 11/10/19 22:16 Dose: 15 mg Pantoprazole Sodium (Protonix -) 40 mg PO DAILY [facility] Triamterene/HCTZ (Dyazide 25/37.5mg) 1 cap PO DAILY PAUL Last Admin: 11/11/19 10:16 Dose: 1 cap - Objective Vital Signs: Vital Signs Temperature 97.7 F 11/11/19 05:00 Pulse Rate 78 11/11/19 11:00 Respiratory Rate 18 11/11/19 11:00 Blood Pressure 125/75 11/11/19 11:00 O2 Sat by Pulse Oximetry (%) 96 11/11/19 09:00 Constitutional: Yes: No Distress Eyes: Yes: Conjunctiva Clear Cardiovascular: Yes: Regular Rate and Rhythm, S1, S2 Respiratory: Yes: CTA Bilaterally Gastrointestinal: Yes: Normal Bowel Sounds, Soft, Other (NO SUPRAPUBIC TENDERNESS). No: Tenderness Labs: CBC, BMP 11/11/19 08:26 11/11/19 08:26 INR, PTT INR 1.47 (0.83-1.09) H 11/09/19 17:07 Assessment/Plan S/P CYSTO RECURRENT UTIS FEVER/LEUKOCYTOSIS RESOLVED MULTIPLE ANTIBIOTIC ALLERGIES D/C ANTIBIOTICS, OBSERVE OUTPATIENT UROLOGY F/U
[2019-11-11 15:16] VITALS: BMI 28.0
[2019-11-12] MEDS ORDERED: PANTOPRAZOLE 40 MG TABLET (FP) PO SCH (10:00)
== END 2019-11-11 14:45 | disposition home or self-care (01) | DRG 690 ==
LOC: JER 16:33 → JERBED 22:20 → J6S 11-10 15:29
PROVIDERS: ADMIT Internal Medicine; ATTEND Internal Medicine
DX: N39.0 Urinary tract infection, site not specified (principal); E87.6 Hypokalemia; I10 Essential (primary) hypertension; K29.70 Gastritis, unspecified, without bleeding; Z87.440 Personal history of urinary (tract) infections; J06.9 Acute upper respiratory infection, unspecified
CPT/HCPCS: 36415; 71046-TC-FY; 74177-TC; 80048; 80053; 81003; 82803; 83605; 83735; 84100; 85025; 85610; 87040; 87086; 87804; 93005; 93010; 99283-25; J0131; J1644; J7030

== ENCOUNTER 2020-08-08 19:49 | Emergency (ER) | payer OTHER, MEDICARE ==
--- OUTSIDE RECORDS SUMMARY | 2020-08-08 19:56 | XMS ---
:1955 Author Organization [facility] Support Name Relationship Address Phone RE, RETIRED Unavailable Unavailable Unavailable RE Unavailable Unavailable Unavailable SHAQ VARGAS [address] [place] [address] shaq vargas Unavailable [address] [phone] [place] [address] Re-disclosure Warning The records that you are about to access may contain information from federally- assisted alcohol or drug abuse programs. If such information is present, then the following federally mandated warning applies: This information has been disclosed to you from records protected by federal confidentiality rules (42 CFR part 2). The federal rules prohibit you from making any further disclosure of this information unless further disclosure is expressly permitted by the written consent of the person to whom it pertains or as otherwise permitted by 42 CFR part 2. A general authorization for the release of medical or other information is NOT sufficient for this purpose. The Federal rules restrict any use of the information to criminally investigate or prosecute any alcohol or drug abuse patient.The records that you are about to access may contain highly sensitive health information, the redisclosure of which is protected by Article 27-F of the [facility] Public Health law. If you continue you may haveaccess to information: Regarding HIV / AIDS; Provided by facilities licensed or operated by the [facility] Office of Mental Health; or Provided by the [facility] Office for People With Developmental Disabilities. If such information is present, then the following [facility] mandated warning applies: This information has been disclosed to you from confidential records which are protected by state law. State law prohibits you from making any further disclosure of this information without the specific written consent of the person to whom it pertains, or as otherwise permitted by law. Any unauthorized further disclosure in violation of state law may result in a fine or longterm sentence or both. A general authorization for the release of medical or other information is NOT sufficient authorization for further disclosure. Insurance Providers Payer name Policy type Policy ID Covered Covered republican's Policy P kasia / Coverage republican ID relationship to [employer] Inf ormation type rascon MEDICARE [id number] SP [id number] [facility] [id number] SP [id number] CARE [employer] MEDICARE [id number] SP [id number] Results ID Date Data Source [id number] 07/18/2020 02:24:00 PM EDT [facility] Name Value Range Interpretation Description Data Sup porting Code Source(s) Document(s ) SARS [facility] coronavirus 2 RNA This lab was ordered by [facility] and reported by [facility]. ID Date Data Source [id number] 04/06/2020 04:20:00 PM EDT [facility] Name Value Range Interpretation Description Data Sup porting Code Source(s) Document(s ) SARS [facility] CORONAVIRUS 2 RNA This lab was ordered by HERMANN gallardo [facility] and reported by [facility]. Procedure
[2020-08-08 19:57] VITALS: BP 155/90; PULSE 81; TEMP 98.7; BMI 25.0
--- NOTE | 2020-08-08 20:13 | PDOC ---
History of Present Illness - General Chief Complaint: Pain, Acute Stated Complaint: TRIGEMINAL NEURALGIA Time Seen by Provider: 08/08/20 20:13 History Source: Patient Exam Limitations: No Limitations - History of Present Illness Initial Comments: 08/08/20 20:29 This is a 65-year-old female who comes in complaining of pain secondary to trigeminal neuralgia. Patient said she has been on multiple medications with minimal relief. Patient said the only medication that actually worked for her was oxcarbazepine however it did give her low sodium after taking it for 5 years. So patient has been switched to multiple other medications. Patient is requesting to be put back on that medication and said she will monitor her sodium in conjunction with her doctor. Patient does have an appointment for 12 days from now to have her sodium rechecked patient otherwise is without complaints. Allergies: as per nursing notes Past Medical History: none Social history: Lives with family. No smoking. No alcohol. No illicit drugs. Surgical history: None General: No fevers or chills, no weakness, no weight loss HEENT: No change in vision. No sore throat,. No ear pain CardioVascular: no chest discomfort. No shortness of breath Respiratory:No cough, or wheezing. Gastrointestinal: no nausea, vomiting, diarrhea or constipation, No rectal bleeding Genitourinary: No dysuria, hematuria, or frequency Musculoskeletal: No joint or muscle pain or swelling Neurologic: No headache, vertigo, dizziness or loss of consciousness Psychiatric: nor depression Skin: No rashes or easy bruising Endocrine: no increased thirst or abnormal weight change Allergic: no skin or latex allergy All other systems reviewed and normal GENERAL: The patient is awake, alert, and fully oriented, in mild distress HEENT:Head is normal with no signs of trauma. Eyes: Pupils equal, round and reactive to light, Ears, and Throat are normal. Neck is supple. No Lymphadenopathy. Pain reproduced in the area of the right trigeminal nerve on palpation. EXTREMITIES:atraumatic, Normal range of motion, no edema. NEUROLOGICAL: Normal speech, normal gait. PSYCH: Normal mood, normal affect. SKIN: Warm, Dry, normal turgor, no rashes or lesions noted. Essman and plan: This is a 65-year-old female with trigeminal neuralgia with and difficulty controlling the pain. Patient given a medication that is worked in the past and Toradol. Patient will follow-up with her doctor which she has an appointment with already Past History - Medical History Allergies/Adverse Reactions: Allergies Allergy/AdvReac Type Severity Reaction Status Date / Time ciprofloxacin [From Cipro] Allergy Severe Verified 04/06/20 14:26 ciprofloxacin HCl Allergy Severe Verified 04/06/20 14:26 [From Cipro] aztreonam [From Azactam] Allergy Mild Itching Verified 04/06/20 14:26 amoxicillin Allergy Verified 04/06/20 14:26 Cephalosporins Allergy Verified 04/06/20 14:26 Home Medications: Ambulatory Orders Oxcarbazepine 200 mg PO DAILY 04/03/20 Omeprazole 40 mg PO DAILY 04/06/20 Cholecalciferol (Vitamin D3) [Vitamin D3 -] 400 unit PO DAILY 08/08/20 Olmesartan Medoxomil 40 mg PO DAILY 08/08/20 Oxcarbazepine [Trileptal -] 300 mg PO DAILY #12 tablet 08/08/20 Pravastatin Sodium [Pravachol -] 40 mg PO DAILY 08/08/20 COPD: No GI Disorders: Yes (GASTRITIS, ULCER,) HTN: Yes Psychiatric Problems: Yes (ANXIETY,) Other medical history: TRIGEMINAL NEURALGIA - Surgical History Abdominal Surgery: Yes Orthopedic Surgery: Yes - Immunization History Immunization Up to Date: No - Psycho-Social/Smoking History Smoking History: Never smoked Have you smoked in the past 12 months: No *Physical Exam - Vital Signs Last Vital Signs Temp Pulse Resp BP Pulse Ox 98.7 F 81 16 155/90 98 08/08/20 19:53 08/08/20 19:53 08/08/20 19:53 08/08/20 19:53 08/08/20 19:53 Discharge - Discharge Information Problems reviewed: Yes Clinical Impression/Diagnosis: Trigeminal neuralgia of right side of face Condition: Stable Disposition: HOME - Admission No - Additional Discharge Information Prescriptions: Oxcarbazepine [Trileptal -] 300 mg PO DAILY #12 tablet - Follow up/Referral - Patient Discharge Instructions Additional Instructions: Take your oxcarbazepine 1 tablet a day. It is very important that you have your physician check your sodium in 12 days when you see your physician. Return to the emergency department immediately with ANY new, persistent or worsening symptoms. Continue any medications as previously prescribed by your physician. You should follow up with your primary doctor as soon as possible regarding today's emergency department visit. . Please make sure your doctor reviews the results of your emergency evaluation. Thank you for coming to the Emergency Department today for your care. It was a pleasure to see you today. Please note that your evaluation is INCOMPLETE until you follow-up with your doctor. - Post Discharge Activity
[2020-08-08] MEDS ORDERED: OXcarbazepine 300 MG/5 ML UNIT DOSE CUPS PO ONE (20:24)
[2020-08-08] MEDS ORDERED: KETOROLAC TROMETHAMINE 60 MG/2 ML VIAL IM ONE (20:24)
[2020-08-08] MEDS ORDERED: KETOROLAC TROMETHAMINE 60 MG/2 ML VIAL ONE (20:36)
== END 2020-08-08 20:51 | disposition home or self-care (01) ==
LOC: FER 19:49
PROC: 3E0233Z Introduction of Anti-inflammatory into Muscle, Percutaneous Approach (ICD-10-PCS; principal; 2020-08-08)
DX: G50.0 Trigeminal neuralgia (principal)
CPT/HCPCS: 99284-25

== ENCOUNTER 2020-10-04 14:55 | Emergency (ER) | payer OTHER, MEDICARE ==
[2020-10-04] MEDS ORDERED: MAG HYDROX/AL HYDROX/SIMETH 30 ML UNIT-DOSE CUP PO ONE (15:42)
[2020-10-04] MEDS ORDERED: PANTOPRAZOLE 40 MG TABLET PO ONE (15:42)
[2020-10-04] MEDS ORDERED: LIDOCAINE VISCOUS 2% ORAL/TOP 20 ML UNIT-DOSE CUP MM ONE (15:42)
[2020-10-04 17:00] VITALS: BP 158/90; PULSE 97; TEMP 98; BMI 68.5
[2020-10-04] MEDS ORDERED: FAMOTIDINE 20 MG TABLET PO ONE (18:57)
[2020-10-04] MEDS ORDERED: MAG HYDROX/AL HYDROX/SIMETH 30 ML UNIT-DOSE CUP ONE (18:58)
[2020-10-04] MEDS ORDERED: FAMOTIDINE 20 MG TABLET ONE (18:58)
[2020-10-04] MEDS ORDERED: LIDOCAINE VISCOUS 2% ORAL/TOP 20 ML UNIT-DOSE CUP ONE (18:58)
[2020-10-04 19:01] LABS: BASO % 1.5 % (0-2.0); EOS % 1.1 % (0-4.5); HEMATOCRIT 41.7 % (32.4-45.2); HEMOGLOBIN 14.3 GM/dl (10.7-15.3); LYMPH % 30.3 % (8-40); MCH 30.4 pg (25.7-33.7); MCHC 34.2 g/dl (32.0-36.0); MEAN CELL VOLUME 88.9 fl (80-96); MEAN PLT VOLUME 6.7 fl (7.5-11.1); MONO % 3.4 % (3.8-10.2); NEUT % 63.7 % (42.8-82.8); PLATELET COUNT 310 K/MM3 (134-434); RBC 4.69 M/mm3 (3.60-5.2); RDW 12.3 % (11.6-15.6); WHITE BLOOD COUNT 9.4 K/mm3 (4.0-10.8)
[2020-10-04 19:12] LABS: ALBUMIN 4.2 g/dl (3.4-5.0); ALK PHOS 95 U/L (45-117); ANION GAP 8 MMOL/L (8-16); BILIRUBIN,TOTAL 0.4 mg/dl (0.2-1); CALCIUM 9.2 mg/dl (8.5-10); CHLORIDE 102 mmol/L (98-107); CO2 28 mmol/L (21-32); CREATININE 0.8 mg/dl (0.55-1.3); GLUCOSE,RANDOM 89 mg/dl (74-106); POTASSIUM 3.6 mmol/L (3.5-5.1); SGOT/AST 37 U/L (15-37); SGPT/ALT 70 U/L (13-61); SODIUM 138 mmol/L (136-145); TOT PROT 7.4 g/dl (6.4-8.2)
== END 2020-10-04 20:12 | disposition home or self-care (01) ==
LOC: FER 14:55
DX: R07.89 Other chest pain (principal)
CPT/HCPCS: 36415; 80053; 82550; 84484; 85025; 93005; 99285-25

== ENCOUNTER 2021-01-11 16:52 | Emergency (ER) | payer OTHER, MEDICARE ==
[2021-01-11] MEDS ORDERED: diphenhydrAMINE HCL 25 MG CAPSULE (FP) PO ONE (17:17)
[2021-01-11] MEDS ORDERED: diphenhydrAMINE HCL 50 MG CAPSULE ONE (17:19)
[2021-01-11 17:24] VITALS: BP 156/91; PULSE 91; TEMP 98.9; BMI 25.6
== END 2021-01-11 18:11 | disposition home or self-care (01) ==
LOC: FER 16:52
DX: R21 Rash and other nonspecific skin eruption (principal); T78.40XA Allergy, unspecified, initial encounter
CPT/HCPCS: 99284-25

== ENCOUNTER 2021-01-12 08:21 | Emergency (ER) | payer OTHER, MEDICARE ==
[2021-01-12 08:30] VITALS: BP 118/74; PULSE 79; TEMP 97.5; BMI 25.6
[2021-01-12] MEDS ORDERED: FAMOTIDINE 20 MG TABLET PO ONE (08:43)
[2021-01-12] MEDS ORDERED: diphenhydrAMINE HCL 25 MG CAPSULE (FP) PO ONE ×2 (08:43→08:44)
[2021-01-12] MEDS ORDERED: DEXAMETHASONE SOD PHOSPHATE 10 MG/1 ML VIAL IM ONE (08:43)
[2021-01-12] MEDS ORDERED: FAMOTIDINE 20 MG TABLET ONE (08:44)
[2021-01-12] MEDS ORDERED: DEXAMETHASONE SOD PHOSPHATE 10 MG/1 ML VIAL ONE (08:44)
== END 2021-01-12 10:04 | disposition home or self-care (01) ==
LOC: JER 08:21 → JERFT 08:21
PROC: 3E0233Z Introduction of Anti-inflammatory into Muscle, Percutaneous Approach (ICD-10-PCS; principal; 2021-01-12)
DX: T78.40XA Allergy, unspecified, initial encounter (principal)
CPT/HCPCS: 99284-25; J1100

== ENCOUNTER 2021-01-13 19:10 | Emergency (ER) | payer OTHER, MEDICARE ==
[2021-01-13 20:04] VITALS: BP 145/80; PULSE 99; TEMP 98.7; BMI 25.0
[2021-01-13] MEDS ORDERED: TRIAMCINOLONE ACET 40MG/1ML VIAL IM ONE (21:24)
[2021-01-13] MEDS ORDERED: TRIAMCINOLONE ACET 40MG/1ML VIAL ONE (22:31)
== END 2021-01-13 22:49 | disposition home or self-care (01) ==
LOC: JER 19:10
PROC: 3E023GC Introduction of Other Therapeutic Substance into Muscle, Percutaneous Approach (ICD-10-PCS; principal; 2021-01-13)
DX: R21 Rash and other nonspecific skin eruption (principal)
CPT/HCPCS: 99284-25

== ENCOUNTER 2022-12-09 14:53 | Inpatient (IN) | payer OTHER, MEDICARE ==
[2022-12-09 15:35] VITALS: BMI 25.7
[2022-12-09 17:09] LABS: BASO % 0.8 % (0-2.0); EOS % 0.2 % (0-4.5); HEMATOCRIT 39.2 % (32.4-45.2); HEMOGLOBIN 13.6 GM/dL (10.7-15.3); MCH 29.2 pg (25.7-33.7); MCHC 34.7 g/dl (32.0-36.0); MEAN CELL VOLUME 84.3 fl (80-96); MEAN PLT VOLUME 6.7 fl (7.5-11.1); MONO % 5.7 % (3.8-10.2); NEUT % 73.3 % (42.8-82.8); PLATELET COUNT 328 10^3/uL (134-434); RBC 4.65 M/mm3 (3.60-5.2); RDW 12.9 % (11.6-15.6); WHITE BLOOD COUNT 8.3 K/mm3 (4.0-10.0)
[2022-12-09 17:49] LABS: CALCIUM 9.4 mg/dL (8.5-10.1)
[2022-12-09 17:50] LABS: ALBUMIN 3.8 g/dl (3.4-5.0); BLOOD UREA NITROGEN 17.2 mg/dL (7-18); MAGNESIUM 2.1 mg/dL (1.8-2.4)
[2022-12-09 17:53] LABS: CREATININE 0.9 mg/dL (0.55-1.3)
[2022-12-09 17:54] LABS: BILIRUBIN,TOTAL 0.3 mg/dL (0.2-1); TOT PROT 7.4 g/dl (6.4-8.2)
[2022-12-09 18:09] LABS: EPI CELLS 6 /uL (0-25.1); HYALINE CASTS 0 /uL (0-3.1); URINE APPEARANCE CLEAR; URINE BACTERIA 11 /uL (0-1359); URINE BILIRUBIN NEGATIVE (NEGATIVE); URINE COLOR YELLOW; URINE GLUCOSE (UA) NEGATIVE (NEGATIVE); URINE KETONE NEGATIVE (NEGATIVE); URINE LEUK ESTERASE 1+ (NEGATIVE); URINE NITRITE NEGATIVE (NEGATIVE); URINE PROTEIN NEGATIVE (NEGATIVE); URINE RBC 22 /uL (0-23.9); URINE UROBILINOGEN 0.2 mg/dL (0.2-1.0); URINE WBC 53 /uL (0-25.8)
[2022-12-09] MEDS ORDERED: NITROFURANTOIN MACROCRYSTAL 50 MG CAPSULE (FP) PO ONE (18:45)
[2022-12-09] MEDS ORDERED: NITROFURANTOIN MACROCRYSTAL 50 MG CAPSULE (FP) PO SCH (18:45)
[2022-12-09] MEDS ORDERED: VANCOMYCIN 1 GM in D5W (PRE-DOCKED) 1,000 MG/250 ML IVPB ONE (19:54)
[2022-12-09] MEDS ORDERED: VANCOMYCIN/WATER FOR INJ (PEG) 1,000 MG/200 ML BAG IVPB ONE (20:05)
[2022-12-09] MEDS ORDERED: amLODIPine BESYLATE 5 MG TABLET (FP) PO ONE (22:30)
[2022-12-09] MEDS ORDERED: hydrALAZINE HCL 50 MG TABLET (FP) ONE (22:41)
[2022-12-09] MEDS ORDERED: amLODIPine BESYLATE 5 MG TABLET (FP) ONE (22:41)
[2022-12-09] MEDS: hydrALAZINE HCL 50 MG TABLET (FP) PO SCH (22:49)
[2022-12-09] MEDS: SULFAMETHOXAZOLE/TRIMETHOPRIM 800MG/160MG D.S. TABLET PO SCH (23:39)
[2022-12-10] MEDS ORDERED: TEMAZEPAM 15 MG CAPSULE ONE (01:53)
[2022-12-10] MEDS ORDERED: TEMAZEPAM 15 MG CAPSULE PO ONE (02:15)
[2022-12-10] MEDS: hydrALAZINE HCL 50 MG TABLET (FP) PO SCH ×3 (08:06→22:32)
[2022-12-10] MEDS ORDERED: hydrALAZINE HCL 50 MG TABLET (FP) ONE (08:08)
[2022-12-10 08:24] LABS: HEMATOCRIT 42.3 % (32.4-45.2); HEMOGLOBIN 14.5 GM/dL (10.7-15.3); MCH 29.1 pg (25.7-33.7); MCHC 34.4 g/dl (32.0-36.0); MEAN CELL VOLUME 84.5 fl (80-96); MEAN PLT VOLUME 6.4 fl (7.5-11.1); PLATELET COUNT 331 10^3/uL (134-434); WHITE BLOOD COUNT 8.3 K/mm3 (4.0-10.0)
[2022-12-10 09:01] LABS: CALCIUM 9.1 mg/dL (8.5-10.1)
[2022-12-10 09:02] LABS: ALBUMIN 3.9 g/dl (3.4-5.0); BLOOD UREA NITROGEN 17.5 mg/dL (7-18); MAGNESIUM 2.3 mg/dL (1.8-2.4)
[2022-12-10 09:05] LABS: CREATININE 0.7 mg/dL (0.55-1.3); PHOSPHOROUS 3.7 mg/dL (2.5-4.9)
[2022-12-10 09:06] LABS: TOT PROT 7.6 g/dl (6.4-8.2)
[2022-12-10 09:07] LABS: BILIRUBIN,TOTAL 0.4 mg/dL (0.2-1)
[2022-12-10] MEDS ORDERED: ENOXAPARIN NA (PORCINE) 40 MG/0.4 ML DISP.SYRIN SQ SCH (10:00)
[2022-12-10] MEDS: SULFAMETHOXAZOLE/TRIMETHOPRIM 800MG/160MG D.S. TABLET PO SCH ×2 (10:19→22:33)
[2022-12-10] MEDS: OXcarbazepine 300 MG TABLET (UD) PO SCH ×3 (10:20→22:42)
[2022-12-10] MEDS ORDERED: SULFAMETHOXAZOLE/TRIMETHOPRIM 800MG/160MG D.S. TABLET ONE (10:45)
[2022-12-10] MEDS ORDERED: ENOXAPARIN NA (PORCINE) 40 MG/0.4 ML DISP.SYRIN SQ ONE (10:45)
[2022-12-10] MEDS ORDERED: ACETAMINOPHEN 325 MG TABLET (FP) PO PRN (12:07)
[2022-12-10] MEDS: SODIUM CHLORIDE 1,000 ML IV SCH (12:28)
[2022-12-10] MEDS ORDERED: POTASSIUM CHLORIDE TABS 20 MEQ TABLET.ER (FP) PO ONE (14:45)
[2022-12-10] MEDS ORDERED: KETOROLAC TROMETHAMINE 15 MG/ML VIAL IVPUSH PRN (15:24)
[2022-12-10] MEDS: METHOCARBAMOL 500 MG TABLET PO PRN (16:09)
[2022-12-10 19:56] LABS: CALCIUM 9.1 mg/dL (8.5-10.1)
[2022-12-10 20:00] LABS: CREATININE 1.4 mg/dL (0.55-1.3)
[2022-12-10] MEDS ORDERED: LOSARTAN POTASSIUM 50 MG TABLET PO SCH (22:00)
[2022-12-10] MEDS: TEMAZEPAM 15 MG CAPSULE PO SCH (23:22)
[2022-12-11] MEDS: SODIUM CHLORIDE 1,000 ML IV SCH ×2 (01:25→14:45)
[2022-12-11] MEDS: hydrALAZINE HCL 50 MG TABLET (FP) PO SCH ×3 (06:26→21:41)
[2022-12-11] MEDS: HEPARIN NA (PORCINE) 5,000 UNITS/ML 1ML VIAL SQ SCH ×3 (06:31→21:42)
[2022-12-11] MEDS: CITALOPRAM HYDROBROMIDE 10 MG TABLET PO SCH (10:13)
[2022-12-11] MEDS: OXcarbazepine 300 MG TABLET (UD) PO SCH ×2 (10:13→21:44)
[2022-12-11 12:07] LABS: CALCIUM 9.6 mg/dL (8.5-10.1)
[2022-12-11 12:08] LABS: BLOOD UREA NITROGEN 21.7 mg/dL (7-18); MAGNESIUM 2.3 mg/dL (1.8-2.4)
[2022-12-11] MEDS: POLYETHYLENE GLYCOL (HEALTHYLAX) 3350 17 GM PACKET PO SCH (14:47)
[2022-12-11] MEDS: METHOCARBAMOL 500 MG TABLET PO PRN ×2 (14:58→21:42)
[2022-12-11] MEDS: TEMAZEPAM 15 MG CAPSULE PO SCH (21:41)
[2022-12-12] MEDS: HEPARIN NA (PORCINE) 5,000 UNITS/ML 1ML VIAL SQ SCH ×3 (05:03→21:49)
[2022-12-12] MEDS: hydrALAZINE HCL 50 MG TABLET (FP) PO SCH ×3 (05:03→21:49)
[2022-12-12] MEDS: SODIUM CHLORIDE 1,000 ML IV SCH (05:04)
[2022-12-12] MEDS: POLYETHYLENE GLYCOL (HEALTHYLAX) 3350 17 GM PACKET PO SCH (09:11)
[2022-12-12] MEDS: CITALOPRAM HYDROBROMIDE 10 MG TABLET PO SCH (09:11)
[2022-12-12] MEDS: OXcarbazepine 300 MG TABLET (UD) PO SCH ×2 (09:11→21:50)
[2022-12-12 09:31] LABS: BASO % 0.9 % (0-2.0); EOS % 0.4 % (0-4.5); HEMATOCRIT 38.7 % (32.4-45.2); HEMOGLOBIN 13.2 GM/dL (10.7-15.3); LYMPH % 25.8 % (8-40); MCH 29.4 pg (25.7-33.7); MCHC 34.2 g/dl (32.0-36.0); MEAN PLT VOLUME 6.3 fl (7.5-11.1); MONO % 4.4 % (3.8-10.2); NEUT % 68.5 % (42.8-82.8); PLATELET COUNT 356 10^3/uL (134-434); RDW 13.4 % (11.6-15.6); WHITE BLOOD COUNT 9.2 K/mm3 (4.0-10.0)
[2022-12-12 09:57] LABS: ALBUMIN 3.5 g/dl (3.4-5.0)
[2022-12-12 09:58] LABS: MAGNESIUM 2.3 mg/dL (1.8-2.4)
[2022-12-12 09:59] LABS: PHOSPHOROUS 2.8 mg/dL (2.5-4.9)
[2022-12-12 10:00] LABS: CREATININE 0.8 mg/dL (0.55-1.3)
[2022-12-12 10:01] LABS: BILIRUBIN,TOTAL 0.5 mg/dL (0.2-1); BLOOD UREA NITROGEN 14.2 mg/dL (7-18); TOT PROT 6.8 g/dl (6.4-8.2)
[2022-12-12] MEDS ORDERED: ACETAMINOPHEN 325 MG TABLET (FP) PO PRN (12:18)
[2022-12-12] MEDS: TEMAZEPAM 15 MG CAPSULE PO SCH (22:35)
[2022-12-13] MEDS: HEPARIN NA (PORCINE) 5,000 UNITS/ML 1ML VIAL SQ SCH ×3 (06:20→21:01)
[2022-12-13] MEDS: hydrALAZINE HCL 50 MG TABLET (FP) PO SCH ×3 (06:20→21:01)
[2022-12-13] MEDS: METHOCARBAMOL 500 MG TABLET PO PRN ×2 (07:31→21:02)
[2022-12-13 08:25] LABS: ALBUMIN 3.2 g/dl (3.4-5.0); CALCIUM 9.2 mg/dL (8.5-10.1)
[2022-12-13 08:26] LABS: BLOOD UREA NITROGEN 9.4 mg/dL (7-18); MAGNESIUM 2.2 mg/dL (1.8-2.4)
[2022-12-13 08:28] LABS: CREATININE 0.6 mg/dL (0.55-1.3)
[2022-12-13 08:30] LABS: BILIRUBIN,TOTAL 0.3 mg/dL (0.2-1)
[2022-12-13 08:33] LABS: TOT PROT 6.1 g/dl (6.4-8.2)
[2022-12-13] MEDS: POLYETHYLENE GLYCOL (HEALTHYLAX) 3350 17 GM PACKET PO SCH (09:28)
[2022-12-13] MEDS: SODIUM CHLORIDE 1 GM TABLET PO SCH ×2 (09:29→21:02)
[2022-12-13] MEDS: PANTOPRAZOLE 40 MG TABLET PO SCH (09:29)
[2022-12-13] MEDS: OXcarbazepine 300 MG TABLET (UD) PO SCH ×2 (09:29→21:02)
[2022-12-13] MEDS ORDERED: FAMOTIDINE 20 MG TABLET PO SCH (10:00)
[2022-12-13] MEDS: CITALOPRAM HYDROBROMIDE 10 MG TABLET PO SCH (10:21)
[2022-12-13] MEDS: TEMAZEPAM 15 MG CAPSULE PO SCH (21:02)
[2022-12-14] MEDS: HEPARIN NA (PORCINE) 5,000 UNITS/ML 1ML VIAL SQ SCH ×2 (06:43→13:58)
[2022-12-14] MEDS: hydrALAZINE HCL 50 MG TABLET (FP) PO SCH (06:44)
[2022-12-14 08:46] LABS: BLOOD UREA NITROGEN 9.8 mg/dL (7-18); CALCIUM 8.8 mg/dL (8.5-10.1); MAGNESIUM 2.2 mg/dL (1.8-2.4)
[2022-12-14 08:49] LABS: CREATININE 0.7 mg/dL (0.55-1.3); PHOSPHOROUS 3.4 mg/dL (2.5-4.9)
[2022-12-14 08:51] LABS: BILIRUBIN,TOTAL 0.3 mg/dL (0.2-1)
[2022-12-14] MEDS: METHOCARBAMOL 500 MG TABLET PO PRN (09:46)
[2022-12-14] MEDS: OXcarbazepine 300 MG TABLET (UD) PO SCH (09:46)
[2022-12-14] MEDS: SODIUM CHLORIDE 1 GM TABLET PO SCH (09:47)
[2022-12-14] MEDS: CITALOPRAM HYDROBROMIDE 10 MG TABLET PO SCH (09:47)
[2022-12-14] MEDS: PANTOPRAZOLE 40 MG TABLET PO SCH (09:47)
[2022-12-14] MEDS: POLYETHYLENE GLYCOL (HEALTHYLAX) 3350 17 GM PACKET PO SCH (09:48)
[2022-12-14] MEDS ORDERED: LOSARTAN POTASSIUM 50 MG TABLET PO SCH (10:00)
[2022-12-14] MEDS ORDERED: ATENOLOL 25 MG TABLET (FP) PO SCH (10:00)
[2022-12-14 11:08] VITALS: BP 139/63; PULSE 110; RESP 19; TEMP 98
== END 2022-12-14 15:50 | disposition home or self-care (01) | DRG 644 ==
LOC: JER 14:53 → INTOOBSV 17:48 → JERBED 17:48 → UNDOADMOB 17:48 → JERBED 12-10 13:58 → J6S 12-10 15:18 → OBSVTOIN 12-11 13:54 → J4W 12-12 12:17
PROVIDERS: ADMIT Internal Medicine; ATTEND Internal Medicine
DX: E22.2 Syndrome of inappropriate secretion of antidiuretic hormone (principal); N17.9 Acute kidney failure, unspecified; M54.50 Low back pain, unspecified; G50.0 Trigeminal neuralgia; I10 Essential (primary) hypertension; E87.6 Hypokalemia; F41.9 Anxiety disorder, unspecified; E78.00 Pure hypercholesterolemia, unspecified; E87.8 Other disorders of electrolyte and fluid balance, not elsewhere classified; T50.2X5A Adverse effect of carbonic-anhydrase inhibitors, benzothiadiazides and other diuretics, initial encounter; T42.1X5A Adverse effect of iminostilbenes, initial encounter; N32.81 Overactive bladder
CPT/HCPCS: 0241U-QW; 36415; 71046-TC-FY; 74178-TC; 80048; 80053; 81003; 82570; 82962; 83735; 83935; 84100; 84300; 85025; 85027; 87086; 93005; 93010; 99285-25; G0378; J1644; Q9967

== ENCOUNTER 2023-07-22 04:30 | Day surgery (SDC) | payer OTHER, MEDICARE ==
[2023-07-20 16:10] VITALS: BMI 25.9
[2023-07-22 09:48] VITALS: TEMP 98.6
[2023-07-22 10:12] VITALS: BP 135/71; PULSE 58; RESP 17
== END 2023-07-22 10:15 | disposition home or self-care (01) ==
LOC: JASU-ENDO 04:30
PROVIDERS: ATTEND Internal Medicine Gastroenterology
PROC: 0DB68ZX Excision of Stomach, Via Natural or Artificial Opening Endoscopic, Diagnostic (ICD-10-PCS; principal; 2023-07-22 09:00)
DX: K29.50 Unspecified chronic gastritis without bleeding (principal); K31.7 Polyp of stomach and duodenum
CPT/HCPCS: 88305-TC; 88342-TC